=== PATIENT | female | born 1955 | race Caucasian/White ===

== ENCOUNTER → 2020-06-09 10:38 | Outpatient (CLI) | payer MEDICARE, MEDICAID, SELFPAY ==
--- NOTE | ~2020-06-09 | MM_ITS ---
EXAMINATION: MM screening [facility] BI w lm HISTORY: Screening mammogram TECHNIQUE: Craniocaudal and mediolateral oblique 3-D tomosynthesis images were obtained and synthetic 2-D images were generated. CAD analysis was submitted and interpreted. COMPARISON: 05/03/2019, 03/23/2018, 03/21/2017 BREAST PARENCHYMAL COMPOSITION: There are scattered areas of fibroglandular density. FINDINGS: Scattered benign-appearing calcifications are present. There is no evidence of suspicious m ass, calcification, or architectural distortion to suggest malignancy in either breast. There has bee n no suspicious interval change. IMPRESSION: 1. No mammographic evidence of malignancy. 2. Recommend routine screening mammography in one year. BI-RADS Category 2: Benign finding(s). Reviewed, dictated and finalized at location A. MARKER
== END ==
PROVIDERS: PCP Registered Nurse; Visit Provider Registered Nurse
DX: Z12.31 Encounter for screening mammogram for malignant neoplasm of breast (principal)
CPT/HCPCS: 77063; 77067

== ENCOUNTER → 2021-07-27 11:43 | Outpatient (CLI) | payer MEDICARE, MEDICAID, SELFPAY ==
--- NOTE | ~2021-07-27 | DEXA_ITS ---
Bone Density Report Name: STORM WAHL Age: 65 Sex: Female Ethnicity: White Date of : 1955 Indication: postmenopausal osteoporosis; monitoring treatment; height loss; Referring Provider: Brittney, Margaret Study: Bone densitometry was performed. Exam Date: July 27, 2021 Accession number: [id number] Bone Density: Region BMD T-score Z-score Classification AP Spine (L1-L4) 0.747 -2.7 -1.1 Osteoporosis Femoral Neck (Left) 0.494 -3.2 -1.7 Osteoporosis Total Hip (Left) 0.541 -3.3 -2.1 Osteoporosis Femoral Neck (Right) 0.617 -2.1 -0.6 Osteopenia Total Hip (Right) 0.756 -1.5 -0.4 Osteopenia Total Hip Mean 0.649 -2.4 -1.3 Osteopenia World Health Organization criteria for BMD impression classify patients as: Normal (T-score at or above -1.0), Osteopenia (T-score between -1.0 and -2.5), or Osteoporosis (T-score at or below -2.5). 10-year Fracture Risk: FRAX not reported because: Some T-score for Spine Total or Hip Total or Femoral Neck at or below -2.5 Treated for osteoporosis Previous Exams: Region Exam Age BMD T-score BMD Change BMD Change Date g/cm2 vs Baseline vs Previous AP Spine(L1-L4) 07/27/2021 65 0.747 -2.7 -0.042* -0.012 12/25/2018 63 0.760 -2.6 -0.030* 0.012 05/31/2016 60 0.747 -2.7 -0.042* -0.042* 04/11/2014 58 0.790 -2.3 Total Hip(Left) 07/27/2021 65 0.541 -3.3 -0.218* -0.017 12/25/2018 63 0.558 -3.1 -0.200* 0.079* 05/31/2016 60 0.479 -3.8 -0.279* -0.279* 04/11/2014 58 0.758 -1.5 Total Hip(Right) 07/27/2021 65 0.756 -1.5 -0.006 0.024 12/25/2018 63 0.732 -1.7 -0.030* 0.004 05/31/2016 60 0.727 -1.8 -0.035* -0.035* 04/11/2014 58 0.762 -1.5 *Denotes significance at 95% confidence level, LSC for AP Spine = 0.022 g/cm2, LSC for Total Hip = 0.027 g/cm2 Clinical Information Provided by Patient: Is being treated for osteoporosis Has used the following medications: Prolia (i.e. denosumab) Patient maximum height was 60 Menopause Age: 54 No regular weight bearing exercise Does not regularly consume dairy products Drinks caffeinated beverages Onset of menses at age 16 Number of children 2 Missed period for more than 6 months in a row Impression: The patient has osteoporosis, based on the Left Total Hip T-score. No significant bone loss was obs
== END ==
PROVIDERS: PCP Registered Nurse; Visit Provider Registered Nurse
DX: M81.8 Other osteoporosis without current pathological fracture (principal); M85.851 Other specified disorders of bone density and structure, right thigh
CPT/HCPCS: 77080

== ENCOUNTER → 2021-08-12 12:49 | Outpatient (CLI) | payer MEDICARE, MEDICAID, SELFPAY ==
--- NOTE | ~2021-08-12 | US_ITS ---
EXAMINATION: US soft tissue upper back DATE: 08/12/2021 13:18 INDICATION: Lump along the skin of the back. TECHNIQUE: Multiple grayscale and Doppler ultrasound images of the region of concern at the lateral r ight back were obtained. COMPARISON: None FINDINGS: 2.2 x 2.9 x 0.9 cm lenticular mass in the subcutaneous fat at the region of concern which is isoechoi c and with similar echotexture and internal septated architecture as the surrounding subcutaneous. No other masses or fluid collections identified. IMPRESSION: 1. 2.9 x 2.2 x 0.9 cm lenticular subcutaneous mass at the region of concern with appearance most cons istent with and statistically most likely to represent a lipoma. Reviewed, dictated and finalized at location B. IMPRESSION: 1. 2.9 x 2.2 x 0.9 cm lenticular subcutaneous mass at the region of concern wit h appearance most consistent with and statistically most likely to represent a lipoma.
== END ==
PROVIDERS: Visit Provider Registered Nurse
DX: R22.2 Localized swelling, mass and lump, trunk (principal)
CPT/HCPCS: 76604

== ENCOUNTER → 2021-11-30 12:01 | Outpatient (CLI) | payer MEDICARE, MEDICAID, SELFPAY ==
--- NOTE | ~2021-11-30 | MM_ITS ---
EXAMINATION: MM screening [facility] BI w lm HISTORY: Screening mammogram TECHNIQUE: Craniocaudal and mediolateral oblique 3-D tomosynthesis images were obtained and synthetic 2-D images were generated. CAD analysis was submitted and interpreted. COMPARISON: 06/09/2020, 05/03/2019, 03/23/2018 bilateral screening mammogram examinations BREAST PARENCHYMAL COMPOSITION: There are scattered areas of fibroglandular density. FINDINGS: Scattered benign calcifications are again noted. There is no evidence of suspicious mass, c alcification, or architectural distortion to suggest malignancy in either breast. There has been no s uspicious interval change. IMPRESSION: 1. No mammographic evidence of malignancy. 2. Recommend routine screening mammography in one year. BI-RADS Category 2: Benign finding(s)... Reviewed, dictated and finalized at location A.
== END ==
PROVIDERS: PCP Registered Nurse; Visit Provider Registered Nurse
DX: Z12.31 Encounter for screening mammogram for malignant neoplasm of breast (principal)
CPT/HCPCS: 77063; 77067

== ENCOUNTER 2023-07-10 11:46 | Outpatient (CLI) | payer MEDICARE, MEDICAID, SELFPAY ==
[2023-07-10 12:10] LABS: Hematocrit 37.8 % (37.0-47.0); Hemoglobin 11.4 g/dL (12.0-15.0)
[2023-07-10 12:24] LABS: Anion Gap 4 mmol/L (8-16); Blood Urea Nitrogen 23 mg/dL (7-17); Calcium 9.5 mg/dL (8.4-10.2); Carbon Dioxide 24 mmol/L (22-30); Chloride 109 mmol/L (98-107); Estimated Glomerular Filt Rate 45; Glucose 83 mg/dL (65-110); Potassium 5.5 mmol/L (3.4-5.0); Sodium 137 mmol/L (137-145)
== END 2023-07-10 11:47 | disposition home or self-care (01) ==
LOC: ANHSURGERY 11:51
PROVIDERS: Anesthesiology; PCP Registered Nurse; Visit Provider Obstetrics & Gynecology
DX: Z51.81 Encounter for therapeutic drug level monitoring (principal); D64.9 Anemia, unspecified; Z01.818 Encounter for other preprocedural examination
CPT/HCPCS: 36415; 80048; 85014; 85018

== ENCOUNTER 2023-07-14 00:15 | Day surgery (SDC) | payer MEDICARE, MEDICAID, SELFPAY ==
[2023-07-07 14:28] VITALS: BMI 28.5
--- NOTE | 2023-07-07 14:54 | PC.NURSE ---
Report to the Outpatient Waiting Room, entrance under the green pavilion located off [facility], at time __9:30AM on date ___07/14/23____. Planned Procedure Time: __11:30AM . Time changes happen often and if your time is changed the preop area will call you the afternoon before. - You and your visitor will be asked to self-screen and do not enter if you have any COVID symptoms. - A mask is optional within the hospital at this time. Patients may have clear liquids (water, carbonated beverages, clear teas, apple juice) until 3 hours prior to surgery with a maximum of 20 ounces. - No food from midnight until time of surgery. Take the following medications with a SIP of water the morning of surgery: ____NONE DO NOT STOP ANY OF YOUR OTHER PRESCRIPTION MEDICATIONS PRIOR TO SURGERY ?EXCEPT THE FOLLOWING Medications to discontinue per physician ___HOLD ALL VITAMINS/SUPPLEMENTS 3 DAYS PRE-OP PER ANESTHESIA. Date to take last dose 07/10/23 Please no make-up, nail estonian, hairspray, perfume, deodorant, or body powder the day of surgery. No jewelry (including any body piercings) or valuables the day of surgery, leave them at home. Please take a shower or bath the night before, or the morning of, surgery with an antibacterial soap. Wear comfortable, loose fitting clothing. - Jewelry must be removed prior to entering the operating room. Rings and piercings that are not removed may be cut off. - The hospital will not accept responsibility for valuables. - Please leave all valuables, including medications, at home the day of surgery. If you are going home after surgery, a licensed regional company truck driver must drive you home. - NO public transportation without another adult if you receive anesthesia. - We recommend that an adult stay with you for 24 hours following discharge. - We also recommend that you do not drive, make important decision, drink alcoholic beverages, or take any drugs that were not prescribed by your health care provider for at least 24 hours after your discharge time. Follow any additional instructions given to you from your surgeon. If you or anyone in your household have experienced Covid symptoms in the past week, please notify your surgeon or the nurse liaison at the phone number below for possible testing. Telephone instructions given to ____PATIENT and asked if any additional questions and then verbalized understanding. Patient advised to call surgeon office or pre surgery nurse liaison [phone] if any additional questions.
--- NOTE | 2023-07-13 14:43 | PM.IMHP ---
H&P: HPI History of Present Illness Date/Time: 07/13/23 14:43 Chief Complaint: Postmenopausal bleeding Narrative: Patient with an episode of spotting in April. Pelvic ultrasound showed an endometrial stripe of 3mm. She was recommended for endometrial sampling. She opted for D and C hysteroscopy. Declined endometrial biopsy in office. Review of Systems Review of Systems: All systems reviewed & are unremarkable except as noted in HPI and below Cardiovascular: Cardiovascular: Reports no additional cardiovascular complaints, Denies chest pain and Denies dyspnea Respiratory: Respiratory: Reports no additional respiratory complaints and Denies dyspnea Gastrointestinal: Gastrointestinal: Reports abdominal pain, Denies change in bowel habits, Denies diarrhea, Denies nausea and Denies vomiting Genitourinary: Genitourinary: Reports pelvic pain Musculoskeletal: Musculoskeletal: Reports back pain Integumentary/Breasts: Skin/Breast: Reports system reviewed and no additional complaints, except as docu Neurologic: Reports system reviewed and no additional complaints, except as documented PMFSH Past Medical History Medical History Arthritis Hypertension IBS (irritable bowel syndrome) Osteoporosis Surgical History Surgical History History of 2 sections History of cholecystectomy History of gastric bypass History of total left knee replacement x3 Family History Family History Father Hypertension Carcinoma of colon Mother Hypertension Cerebrovascular accident Sibling Hypertension Other Family history of malignant neoplasm of breast in first degree relative Social History Social History Smoking packs per day: 0.2 Smoking cigarettes per day: 4.0 Years smoked: 4 Smoking pack-years: 0.80 Smoking status: Former smoker Tobacco type: cigarettes Second hand tobacco smoke exposure: No Smoking end date: 11/06/03 Alcohol intake: current Substance use: never Do You Feel Safe in your Home?: Yes Lack of Transportation: No Lack of Food: Never True Current Housing: I Have Housing Concerned About Future Housing: No Difficulty Paying Gas/Electric Bills: No Difficulty Paying for Meds: No Currently Unemployed: No Education: Associate Degree Difficulty w/ Childcare or Family Care: No Living arrangements: with family Spiritual care concerns: No Meds Home Medications and Allergies Home Medications Medication Instructions Recorded Confirmed Type denosumab 60 mg/mL subcutaneous 60 mg subcut [id number] 06/01/23 07/07/23 History syringe (Prolia) famotidine 20 mg tablet 20 mg PO BID 06/01/23 07/07/23 History hydrochlorothiazide 25 mg tablet 25 mg PO QAM 06/01/23 07/07/23 History lisinopril 10 mg tablet 10 mg PO QAM 06/01/23 07/07/23 History magnesium 200 mg tablet 200 mg PO DAILY 06/01/23 07/07/23 History mecobalamin (vitamin B12) 1,000 1,000 mcg PO DAILY 06/01/23 07/07/23 History mcg chewable tablet solifenacin 10 mg tablet 10 mg PO DAILY 06/01/23 07/07/23 History ferrous sulfate 325 mg (65 mg 325 mg PO DAILY 06/15/23 07/07/23 History iron) tablet (Feosol) Allergies Allergy/AdvReac Type Severity Reaction Status Date / Time No Known Allergies Allergy Verified 07/07/23 14:23 Exam Const: Orientation/consciousness: oriented to person and oriented to place HENMT: Head: normal to inspection Eyes: General: appearance normal, both eyes and all related structures Resp: Effort & Inspection: normal respiratory effort Auscultation: clear to auscultation bilaterally Cardio: Rate: regular rate Rhythm: regular rhythm GI: Inspection: normal to inspection GI Palp: No Rebound tenderness present Neuro: General: oriented to person an
[2023-07-14] MEDS: ACETAMINOPHEN 500 MG TABLET 1000 MG PO (08:09)
[2023-07-14 08:26] VITALS: BP 109/63; PULSE 56; RESP 16; TEMP 36.4; O2SAT 100
[2023-07-14] MEDS: LACTATED RINGERS 1,000 ML 30 ML IV CONT (08:26)
--- NOTE | 2023-07-14 08:52 | WPDHPUPDATE1 ---
History and Physical Update Update Date/Time: 07/14/23 08:52 History and Physical has been reviewed, including an updated exam of the patient. There are NO changes in the patient's condition. Risks, benefits, and alternatives have been discussed and questions answered. Patient agrees to proceed with procedure.
--- NOTE | 2023-07-14 09:11 | WPDANESEPPF ---
Anes - Initial Pre Proc Eval Procedure: Operation Date: 07/14/23 10:00 Proposed Procedures p Hysteroscopy Dilation and Curettage with Removal of Any Endometrial Lesion, if Necessary - Ricardo Tyler MD Date/Time: 07/14/23 09:11 Surgeon: Ricardo Tyler MD Pre Op Diagnosis: Post Menopausal Bleeding Patient Data Age: 67 Gender: F Height: 1.5 m Weight: 60.7 kg Last Vital Signs Temp 97.6 F 07/14/23 08:26 Pulse 56 L 07/14/23 08:26 Resp 16 07/14/23 08:26 BP 109/63 07/14/23 08:26 Pulse Ox 100 07/14/23 08:26 O2 Del Method Room Air 07/14/23 08:26 Allergies Allergy/AdvReac Type Severity Reaction Status Date / Time No Known Allergies Allergy Verified 07/14/23 08:07 Home Medications Medication Instructions Recorded Confirmed Type denosumab 60 mg/mL subcutaneous 60 mg subcut [id number] 06/01/23 07/07/23 History syringe (Prolia) famotidine 20 mg tablet 20 mg PO BID 06/01/23 07/07/23 History hydrochlorothiazide 25 mg tablet 25 mg PO QAM 06/01/23 07/07/23 History lisinopril 10 mg tablet 10 mg PO QAM 06/01/23 07/07/23 History magnesium 200 mg tablet 200 mg PO DAILY 06/01/23 07/07/23 History mecobalamin (vitamin B12) 1,000 1,000 mcg PO DAILY 06/01/23 07/07/23 History mcg chewable tablet solifenacin 10 mg tablet 10 mg PO DAILY 06/01/23 07/07/23 History ferrous sulfate 325 mg (65 mg 325 mg PO DAILY 06/15/23 07/07/23 History iron) tablet (Feosol) Patient hx anesthesia problems: none Family hx anesthesia problems: none Results Review: All pre-operative results and documents have been reviewed as part of the pre-operative evaluation. [facility] Past Medical History Medical History Arthritis Hypertension IBS (irritable bowel syndrome) Osteoporosis Surgical History Surgical History History of 2 sections History of cholecystectomy History of gastric bypass History of total left knee replacement x3 Family History Family History Father Hypertension Carcinoma of colon Mother Hypertension Cerebrovascular accident Sibling Hypertension Other Family history of malignant neoplasm of breast in first degree relative Social History Social History Smoking packs per day: 0.2 Smoking cigarettes per day: 4.0 Years smoked: 4 Smoking pack-years: 0.80 Smoking status: Former smoker Tobacco type: cigarettes Second hand tobacco smoke exposure: No Smoking end date: 11/06/03 Alcohol intake: current Substance use: never Do You Feel Safe in your Home?: Yes Lack of Transportation: No Lack of Food: Never True Current Housing: I Have Housing Concerned About Future Housing: No Difficulty Paying Gas/Electric Bills: No Difficulty Paying for Meds: No Currently Unemployed: No Education: Associate Degree Difficulty w/ Childcare or Family Care: No Living arrangements: with family Spiritual care concerns: No Anes - Eval Final PreProcedure Day of Procedure 07/14/23 09:11 Patient weight: normal Heart: regular rate and rhythm Lungs: clear to auscultation Airway: Mallampati scale class II Neurological: alert and oriented Last oral intake: >/= 8 hours ASA classification: III Emergent: no Anesthetic plan: proceed Anesthesia type and monitoring: general GIVS and standard monitoring Results Review: All pre-operative results and documents have been reviewed as part of the pre-operative evaluation. Informed Consent: The patient's anesthetic plan and its attendant risks and benefits were discussed with the patient/family/POA. Questions were solicited and answers provided to the satisfaction of the patient/family/POA.
[2023-07-14] MEDS: ceFAZolin 2 GM/D5W 50 ML 2 GM/50 ML BAG IVPB (09:18)
[2023-07-14] MEDS: LIDOCAINE HCL 1% LOCAL INJ 20 ML VIAL 10 ML INFILTRATE (09:28)
--- NOTE | 2023-07-14 09:43 | W.PM.PROC2 ---
Procedure Note - Detailed Date of Procedure 07/14/23 Pre-op Diagnosis Post Menopausal Bleeding Post-op Diagnosis Same Procedure Performed Hysteroscopy dilation and curettage Surgeon Ricardo Tyler MD Anesthesia MAC and Local Indications Postmenopausal bleeding Findings Normal uterine cavity, atrophic endometrium. Description of Procedure After informed consent was obtained patient was taken to the operating room and adequate IV sedation was administered. Attention was turned to the vagina. Speculum was inserted. Single-tooth tenaculum placed on the anterior lip of the cervix. 1 % lidocaine was injected at cervicovaginal interface at 2,5,8,10 position. The uterus was sounded to 6 cm. The cervix was dilated to an 4 Lindsey dilator. Using hydrodilation the hysteroscope was inserted into the cavity. The findings were a normal uterine cavity, no lesion. The hysteroscope was removed. A curette was performed, minimal tissue as expected. Single-tooth tenaculum was removed hemostasis was noted at the tenaculum site. Sponge count correct. The patient taken to recovery in stable condition. Estimated Blood Loss 5 Drains No Packing No Pathology Yes (scant endometrial curettings) Complications No immediate complications Condition Stable Disposition Same day [facility] Billing Surgery - Charge Forward: Surgery Billing
[2023-07-14 09:48] VITALS: BP 107/56; PULSE 53; RESP 12; O2SAT 99
[2023-07-14 10:15] VITALS: BP 123/86; PULSE 59; RESP 14
== END 2023-07-14 10:40 | disposition home or self-care (01) ==
PROVIDERS: PCP Registered Nurse; Visit Provider Obstetrics & Gynecology
PROC: 0U5B8ZZ Destruction of Endometrium, Via Natural or Artificial Opening Endoscopic (ICD-10-PCS; CPT 58563; principal; 2023-07-14 10:00)
DX: N95.0 Postmenopausal bleeding (principal); N85.8 Other specified noninflammatory disorders of uterus; I10 Essential (primary) hypertension; M81.0 Age-related osteoporosis without current pathological fracture; Z98.84 Bariatric surgery status; Z87.891 Personal history of nicotine dependence
CPT/HCPCS: 58558; 36415; 80048; 85014; 85018; 88305; A9270; J0690; J1100; J1885; J2250; J2405; J2704; J3010; J7120